=== PATIENT | female | born 1960 | race Caucasian/White ===

== ENCOUNTER → 2022-04-21 | Day surgery (SDC) | payer BC ==
[~2022-04-21] MED LIST: Acetaminophen/HYDROcodone 325-5 MG Tab PO ONE; Glycopyrrolate 0.2 MG/ML 5 ML MDV IV ONE; HYDROmorphone 2 MG/ML SDV IV ONE; Labetalol 100 MG/20 ML MDV IV ONE; Lactated Ringers 1,000 ML IV ONE; Lactated Ringers 1,000 ML IV SCH; Midazolam 1 MG/ML 2 ML SDV IV ONE; Ondansetron 4 MG Tab.DIS PO ONE; Ondansetron 4 MG/2 ML SDV IVPUSH ONE; Propofol 200 MG/20 ML SDV IV ONE; Rocuronium 100 MG/10 ML MDV IV ONE; Scopolamine 1.5 MG Transdermal Patch TOP ONE; Sodium Chloride 0.9% 10 ML Syringe FLUSH PRN; Sugammadex Sodium 200 MG/2 ML VIAL IV ONE; ceFAZolin 2 GM in Premix Bag 1 BAG IV ONE; fentaNYL 100 MCG/2 ML SDV IV ONE; hydrALAZINE 20 MG/ML SDV IV ONE
== END | disposition home or self-care (01) ==
LOC: FB.SDS 07:18
PROVIDERS: ATTEND Surgery
DX: K80.10 Calculus of gallbladder with chronic cholecystitis without obstruction (principal); Z79.899 Other long term (current) drug therapy; Z88.2 Allergy status to sulfonamides; Z88.8 Allergy status to other drugs, medicaments and biological substances
CPT/HCPCS: 00790; 47562; 88304; A9270; J0360; J1170; J2250; J2405; J2704; J3010; J3490; J7120; Q0162